=== PATIENT | female | born 1940 | race Caucasian/White ===

== ENCOUNTER → 2017-02-01 | Outpatient (CLI) | payer MEDICARE, BC ==
[~2017-02-01] MED LIST: CENTRUM SILVER1 TAB PO; MASON NATURAL2000 IU PO; NATURE'S BLE1000 MCG PO; NORCO 325 MG-51 TAB PO; PREMPRO 0.3 MG-1 TAB PO; TOPROL XL 25MG25 MG PO; VITAMIN C500 MG PO
== END ==
LOC: MC.RAD 13:15
DX: Z12.31 Encounter for screening mammogram for malignant neoplasm of breast (principal)

== ENCOUNTER → 2017-02-03 | Outpatient (CLI) | payer MEDICARE, BC | LOC: MC.RAD 12:00 | DX: R92.0 Mammographic microcalcification found on diagnostic imaging of breast (principal) ==

== ENCOUNTER → 2017-02-08 | Outpatient (CLI) | payer MEDICARE, BC | LOC: MC.RAD 10:12 | DX: N60.91 Unspecified benign mammary dysplasia of right breast (principal); R92.0 Mammographic microcalcification found on diagnostic imaging of breast ==

== ENCOUNTER 2017-02-24 07:29 | Day surgery (SDC) | payer MEDICARE, BC ==
[~2017-02-24] VITALS: Ht 175.3 cm; Wt 61.5 kg
[2017-02-24 09:02] VITALS: BP 129/83; PULSE 75; TEMP 97.7
[2017-02-24] MEDS ORDERED: TOPROL XL 25MG25 MG PO (09:10)
[2017-02-24] MEDS ORDERED: PREMPRO 0.3 MG-1 TAB PO (09:10)
[2017-02-24] MEDS ORDERED: VITAMIN C500 MG PO (09:11)
[2017-02-24] MEDS ORDERED: CENTRUM SILVER1 TAB PO (09:11)
[2017-02-24] MEDS ORDERED: MASON NATURAL2000 IU PO (09:11)
[2017-02-24] MEDS ORDERED: NATURE'S BLE1000 MCG PO (09:13)
[2017-02-24 14:05] VITALS: BP 124/72; PULSE 72; TEMP 97.4
[2017-02-24 14:20] VITALS: BP 132/72; PULSE 68
[2017-02-24] MEDS ORDERED: NORCO 325 MG-51 TAB PO (14:31)
[2017-02-24 14:35] VITALS: BP 137/79; PULSE 62
[2017-02-24 14:50] VITALS: BP 148/70; PULSE 61
== END 2017-02-24 15:15 | disposition home or self-care (01) ==
LOC: SDCO 07:29
DX: N60.91 Unspecified benign mammary dysplasia of right breast (principal); R92.0 Mammographic microcalcification found on diagnostic imaging of breast; I10 Essential (primary) hypertension; I49.9 Cardiac arrhythmia, unspecified; R00.2 Palpitations; Z80.3 Family history of malignant neoplasm of breast; Z78.0 Asymptomatic menopausal state; Z90.49 Acquired absence of other specified parts of digestive tract; Z83.3 Family history of diabetes mellitus; Z82.49 Family history of ischemic heart disease and other diseases of the circulatory system; Z87.891 Personal history of nicotine dependence; Z82.0 Family history of epilepsy and other diseases of the nervous system
CPT/HCPCS: J0690; J2704; J3010; J7120

== ENCOUNTER → 2018-02-08 | Outpatient (CLI) | payer MEDICARE, BC | LOC: MC.RAD 13:37 | DX: Z12.31 Encounter for screening mammogram for malignant neoplasm of breast (principal); Z98.890 Other specified postprocedural states ==

== ENCOUNTER → 2019-03-19 | Outpatient (CLI) | payer MEDICARE, BC | LOC: MC.RAD 10:12 | DX: Z12.31 Encounter for screening mammogram for malignant neoplasm of breast (principal) ==

== ENCOUNTER → 2020-04-15 | Outpatient (CLI) | payer MEDICARE, BC | LOC: MC.RAD 10:42 | DX: Z12.31 Encounter for screening mammogram for malignant neoplasm of breast (principal); Z98.82 Breast implant status; Z98.890 Other specified postprocedural states ==

== ENCOUNTER 2021-04-06 16:29 | Emergency (ER) | payer MEDICARE, BC ==
[~2021-04-06] VITALS: Ht 172.7 cm; Wt 59.1 kg
[2021-04-06 17:04] VITALS: TEMP 97.7
[2021-04-06 19:25] VITALS: BP 144/70; PULSE 64
== END 2021-04-06 19:25 | disposition home or self-care (01) ==
LOC: COL.ER 16:29
DX: S06.0X0A Concussion without loss of consciousness, initial encounter (principal); S00.93XA Contusion of unspecified part of head, initial encounter; S10.93XA Contusion of unspecified part of neck, initial encounter; S70.02XA Contusion of left hip, initial encounter; S70.01XA Contusion of right hip, initial encounter; W01.198A Fall on same level from slipping, tripping and stumbling with subsequent striking against other object, initial encounter; Y92.009 Unspecified place in unspecified non-institutional (private) residence as the place of occurrence of the external cause

== ENCOUNTER → 2021-05-25 | Outpatient (CLI) | payer MEDICARE, BC | LOC: MC.RAD 11:12 | DX: Z12.31 Encounter for screening mammogram for malignant neoplasm of breast (principal); Z98.890 Other specified postprocedural states ==

== ENCOUNTER → 2022-05-27 | Outpatient (CLI) | payer MEDICARE, BC | LOC: MC.RAD 13:04 | DX: Z12.31 Encounter for screening mammogram for malignant neoplasm of breast (principal); Z87.42 Personal history of other diseases of the female genital tract ==

== ENCOUNTER 2023-08-17 12:42 | Outpatient (CLI) | payer MEDICARE, BC ==
[~2023-08-17] VITALS: Ht 172.7 cm; Wt 58.2 kg
[~2023-08-17 12:42] MED LIST changes: +CEPHALEXIN500 M1 PO
[2023-08-17] MEDS ORDERED: ESTRACE0.5 MG PO (13:21)
[2023-08-17] MEDS ORDERED: MOTRIN 200200 MG/TAB PO (13:21)
[2023-08-17 13:31] VITALS: BP 158/84; PULSE 77; TEMP 97.8
--- NOTE | 2023-08-17 13:54 | NUR ---
Pt tolerated prolia without issue. She is escorted out to Admissions Entrance to meet [facility] transport. Gait steady with wheeled walker. Pt free of complaints at time of discharge.
[2023-08-17] MEDS ORDERED: ANTIVERT 25MG25 MG PO (15:35)
[2023-08-17] MEDS ORDERED: PROLIA60 MG/ML SQ (15:36)
== END 2023-08-17 13:45 | disposition home or self-care (01) ==
LOC: EUO 12:42
DX: M81.0 Age-related osteoporosis without current pathological fracture (principal)
CPT/HCPCS: J0897